=== PATIENT | female | born 1940 | race Two or more races ===

== ENCOUNTER 2017-05-27 15:14 | Emergency (ER) | payer OTHER ==
[~2017-05-27] VITALS: Ht 152.4 cm; Wt 81.6 kg
[~2017-05-27 15:14] MED LIST: ASPIR 8181 MG; ENALAPRIL MALEA10 MG; ENALAPRIL-HCTZ1 TAB
[2017-05-27] MEDS ORDERED: COZAAR25 MG (15:28)
== END 2017-05-27 18:09 | disposition home or self-care (01) ==
LOC: ER 15:14
DX: M54.2 Cervicalgia (principal)

== ENCOUNTER 2019-02-22 09:01 | Emergency (ER) | payer OTHER ==
[~2019-02-22] VITALS: Ht 152.4 cm; Wt 83.9 kg
[~2019-02-22 09:01] MED LIST changes: +COZAAR25 MG
[2019-02-22] MEDS ORDERED: AMOX-CLAV 875-1 EACH PO (11:27)
[2019-02-22] MEDS ORDERED: IPRAT-ALBUT 0.5-3 ML IH (11:27)
[2019-02-22] MEDS ORDERED: TUSNEL LIQUID178 ML PO (11:27)
== END 2019-02-22 11:40 | disposition home or self-care (01) ==
LOC: ER 09:01
DX: J20.9 Acute bronchitis, unspecified (principal); B96.0 Mycoplasma pneumoniae [M. pneumoniae] as the cause of diseases classified elsewhere

== ENCOUNTER 2021-01-07 09:24 | Emergency (ER) | payer OTHER ==
[~2021-01-07] VITALS: Ht 152.4 cm; Wt 81.6 kg
[~2021-01-07 09:24] MED LIST changes: +AMOX-CLAV 875-1 EACH PO; +IPRAT-ALBUT 0.5-3 ML IH; +TUSNEL LIQUID178 ML PO
== END 2021-01-07 10:10 | disposition home or self-care (01) ==
LOC: ER 09:24
DX: R06.02 Shortness of breath (principal)

== ENCOUNTER 2021-04-15 09:12 | Outpatient (CLI) | payer OTHER | END 2021-04-15 09:14 | disposition home or self-care (01) | LOC: SONOGRAMA 09:12 | PROVIDERS: ATTEND Internal Medicine | DX: N20.2 Calculus of kidney with calculus of ureter (principal); R10.2 Pelvic and perineal pain; R10.84 Generalized abdominal pain ==

== ENCOUNTER 2021-05-12 10:01 | Outpatient (CLI) | payer OTHER | END 2021-05-12 10:02 | disposition home or self-care (01) | LOC: LAB 10:01 | PROVIDERS: ATTEND Radiology Diagnostic Radiology | DX: K56.0 Paralytic ileus (principal) ==

== ENCOUNTER 2021-05-15 13:29 | Emergency (ER) | payer OTHER ==
[~2021-05-15] VITALS: Ht 160 cm; Wt 83.9 kg
== END 2021-05-15 16:00 | disposition home or self-care (01) ==
LOC: ER 13:29
DX: S46.911A Strain of unspecified muscle, fascia and tendon at shoulder and upper arm level, right arm, initial encounter (principal); X58.XXXA Exposure to other specified factors, initial encounter; Y92.9 Unspecified place or not applicable; M25.511 Pain in right shoulder

== ENCOUNTER 2021-05-21 08:08 | Outpatient (CLI) | payer OTHER | END 2021-05-21 08:22 | disposition home or self-care (01) | LOC: RAD 08:08 → MAMO-SONO 08:08 | PROVIDERS: ATTEND Student in an Organized Health Care Education/Training Program | DX: N63.0 Unspecified lump in unspecified breast (principal) ==

== ENCOUNTER → 2021-05-21 09:49 | Outpatient (CLI) | payer OTHER | END | disposition home or self-care (01) | LOC: NUCLEAR 09:49 | DX: M81.8 Other osteoporosis without current pathological fracture (principal) ==

== ENCOUNTER 2021-06-11 12:21 | Outpatient (CLI) | payer OTHER | END 2021-06-11 12:29 | disposition home or self-care (01) | LOC: SONOGRAMA 12:21 | PROVIDERS: ATTEND Obstetrics & Gynecology Obstetrics | DX: N63.0 Unspecified lump in unspecified breast (principal); N64.4 Mastodynia ==

== ENCOUNTER 2021-06-19 08:15 | Outpatient (CLI) | payer OTHER | END 2021-06-19 08:20 | disposition home or self-care (01) | LOC: LAB 08:15 | PROVIDERS: ATTEND Obstetrics & Gynecology Obstetrics | DX: K86.89 Other specified diseases of pancreas (principal) ==

== ENCOUNTER 2021-06-23 09:18 | Outpatient (CLI) | payer OTHER | END 2021-06-23 09:37 | disposition home or self-care (01) | LOC: MRI 09:18 | PROVIDERS: ATTEND Internal Medicine Gastroenterology | DX: K86.89 Other specified diseases of pancreas (principal) | CPT/HCPCS: 74183; Q9965 ==

== ENCOUNTER 2023-02-02 14:47 | Outpatient (CLI) | payer OTHER | END 2023-02-02 15:01 | disposition home or self-care (01) | LOC: RAD 14:47 | PROVIDERS: ATTEND Specialist | DX: M16.12 Unilateral primary osteoarthritis, left hip (principal) ==

== ENCOUNTER 2023-02-15 16:15 | Emergency (ER) | payer OTHER ==
[~2023-02-15] VITALS: Ht 152.4 cm; Wt 79.4 kg
[2023-02-15] MEDS ORDERED: LEVOTHYROXINE25 MCG PO (17:23)
[2023-02-15 19:25] LABS: HEMATOCRIT 43.2 % (36.0-45.00); HEMOGLOBIN 15.1 g/dL (12.0-15.00); MEAN CORPUSCULAR HEMOGLOBIN 32.3 pg (27.00-32.0); MEAN CORPUSCULAR HGB CONC 35.1 g/dl (32.0-36.0); PLATELET COUNT 219 K/uL (150-450); RED BLOOD COUNT 4.69 M/uL (4.00-6.00); RED CELL DISTRIBUTION WIDTH 12.4 % (11.5-14.5)
[2023-02-15 19:44] LABS: CALCIUM 9.1 mg/dL (8.5-10.1); CREATININE SERUM 0.84 mg/dL (0.55-1.02); GFR 64.91; POTASSIUM 4.38 mEq/L (3.5-5.1)
[2023-02-15 20:28] LABS: PH,URINE 5.5 (5.0-8.0); URINE APPEARANCE Cloudy; URINE BILIRRUBIN Negative (NEGATIVE); URINE BLOOD Negative; URINE COLOR Yellow; URINE GLUCOSE Negative (NEGATIVE); URINE LEUKOCYTE Negative; URINE NITRATE Negative; URINE PROTEIN Negative (NEGATIVE)
[2023-02-15 20:31] LABS: URINE BACTERIA 85.6 uL (0.0-1933); URINE EPITHELIAL CELLS 16.3 uL (0.0-38.8); URINE RBC 62.9 uL (0.0-20.8); URINE WBC 5.2 uL (0.0-23.2)
[2023-02-15] MEDS ORDERED: ESTRACE42.5 GM VAG (21:37)
[2023-02-15] MEDS ORDERED: PYRIDIUM100 MG PO (21:37)
[2023-02-15] MEDS ORDERED: DICLOFENAC SODI50 MG PO (21:46)
== END 2023-02-15 22:02 | disposition home or self-care (01) ==
LOC: ER 16:15
PROVIDERS: Nurse Practitioner Family
DX: R30.0 Dysuria (principal); I10 Essential (primary) hypertension; J45.909 Unspecified asthma, uncomplicated; L40.8 Other psoriasis; E03.9 Hypothyroidism, unspecified; K21.9 Gastro-esophageal reflux disease without esophagitis; N95.2 Postmenopausal atrophic vaginitis
CPT/HCPCS: 36415; 96372; 99284; J1885

== ENCOUNTER 2023-03-14 09:00 | Emergency (ER) | payer OTHER ==
[~2023-03-14] VITALS: Ht 152.4 cm; Wt 81.2 kg
[~2023-03-14 09:00] MED LIST changes: +DICLOFENAC SODI50 MG PO; +ESTRACE42.5 GM VAG; +LEVOTHYROXINE25 MCG PO; +PYRIDIUM100 MG PO
[2023-03-14] MEDS ORDERED: CRESTOR5 MG PO (10:09)
== END 2023-03-14 14:38 | disposition home or self-care (01) ==
LOC: ER 09:01
DX: S92.911A Unspecified fracture of right toe(s), initial encounter for closed fracture (principal); W18.39XA Other fall on same level, initial encounter; Y93.89 Activity, other specified; Y92.89 Other specified places as the place of occurrence of the external cause; S20.212A Contusion of left front wall of thorax, initial encounter
CPT/HCPCS: 71045; 71110; 73620; 96372; 99284; J1885

== ENCOUNTER 2023-05-26 08:02 | Outpatient (CLI) | payer OTHER ==
[~2023-05-26 08:02] MED LIST changes: +CRESTOR5 MG PO
== END 2023-05-26 13:44 | disposition home or self-care (01) ==
LOC: MRI 08:02
DX: N32.1 Vesicointestinal fistula (principal)
CPT/HCPCS: 72197; Q9965

== ENCOUNTER 2024-01-09 09:33 | Emergency (ER) | payer OTHER ==
[~2024-01-09] VITALS: Ht 152.4 cm; Wt 77.1 kg
[2024-01-09] MEDS ORDERED: ORPHENADRINE CITRATE 30 MG/ML AMPUL IM ONE (10:15)
[2024-01-09] MEDS ORDERED: ACETAMINOPHEN 500 MG GEL..CAP PO ONE (10:15)
== END 2024-01-09 16:43 | disposition home or self-care (01) ==
LOC: ER 09:35
DX: S70.02XA Contusion of left hip, initial encounter (principal); S20.212A Contusion of left front wall of thorax, initial encounter; W18.39XA Other fall on same level, initial encounter; Y93.89 Activity, other specified; Y92.89 Other specified places as the place of occurrence of the external cause; Y99.9 Unspecified external cause status; E11.9 Type 2 diabetes mellitus without complications; I10 Essential (primary) hypertension; Z85.89 Personal history of malignant neoplasm of other organs and systems

== ENCOUNTER 2024-04-29 15:22 | Emergency (ER) | payer OTHER ==
[~2024-04-29] VITALS: Ht 154.9 cm; Wt 79.4 kg
== END 2024-04-29 17:12 | disposition home or self-care (01) ==
LOC: ER 15:25
DX: B35.8 Other dermatophytoses (principal)

== ENCOUNTER 2024-07-25 07:09 | Outpatient (CLI) | payer OTHER | END 2024-07-25 07:15 | disposition home or self-care (01) | LOC: TOM 07:09 | PROVIDERS: ATTEND Internal Medicine Hepatology | DX: R62.59 Other lack of expected normal physiological development in childhood (principal) ==

== ENCOUNTER → 2024-09-14 | Emergency (ER) | payer OTHER ==
[~2024-09-14] VITALS: Ht 152.4 cm; Wt 77.1 kg
[~2024-09-14] MED LIST changes: +OMEGA-3 ACID ETH1 GM PO; +TRAMADOL HCL 50 MG TABLET PO ONE
[2024-09-14 21:34] VITALS: BP 125/65; O2SAT 96
== END | disposition home or self-care (01) ==
LOC: ER 21:05
DX: S62.101A Fracture of unspecified carpal bone, right wrist, initial encounter for closed fracture (principal); W19.XXXA Unspecified fall, initial encounter; Y93.89 Activity, other specified; Y92.89 Other specified places as the place of occurrence of the external cause; Y99.8 Other external cause status

== ENCOUNTER 2024-09-19 05:09 | Day surgery (SDC) | payer OTHER ==
[2024-09-18 08:46] LABS: BASO % 0.7 % (0.1-1.2); EOS # 0.29 (0.04-0.54); EOS % 4.9 % (0.7-7.0); LYMPH # 2.01 (1.18-3.74); LYMPH % 34.0 % (19.3-53.1); MEAN PLATELET VOLUME 9.60 fl (9.4-12.4); MONO # 0.62 (0.24-0.82); MONO % 10.5 % (4.7-12.5); NEUT # 2.96 (1.56-6.13); NEUT % 49.9 % (34.0-71.1); RED CELL DISTRIBUTION WIDTH 11.4 % (11.6-14.4)
[2024-09-18 08:52] VITALS: BP 145/85
[2024-09-18 09:03] LABS: INR 1.05
[2024-09-18 09:12] LABS: URINE APPEARANCE Clear; URINE BILIRRUBIN Small (NEGATIVE); URINE BLOOD Negative; URINE COLOR Orange; URINE GLUCOSE Negative (NEGATIVE); URINE KETONE Trace (NEGATIVE); URINE LEUKOCYTE Trace; URINE NITRATE Negative; URINE PROTEIN Trace (NEGATIVE); URINE UROBILINOGEN 1.0 E.U./dl
[2024-09-18 09:14] LABS: URINE BACTERIA 97.1 uL (0.0-1933); URINE CAST 3.66 uL (0.0-1.40); URINE EPITHELIAL CELLS 24.9 uL (0.0-38.8); URINE RBC 13.6 uL (0.0-20.8); URINE WBC 7.3 uL (0.0-23.2)
[2024-09-18 09:23] LABS: CHOL HDL RATIO 3.5 (0-5.0); HDL 54.0 mg/dl (40-60); LDL 93.0 mg/dl (0-130); VLDL 42.0 (0-39)
[2024-09-18 09:24] LABS: ALT/SGPT 55.0 U/L (12-78); AST/SGOT 39.0 U/L (15-37); BILIRUBIN TOTAL 2.03 mg/dL (0.3-1.2); BUN CREA RATIO 14.0 (7.0-25.0); CREATININE SERUM 0.73 mg/dL (0.55-1.02); GFR 75.95; GLOBULINA 3.2 G/DL (2.4-3.5); GLUCOSE FASTING 127.0 mg/dL (65-100); OSMOLALITY SERUM 286.0 MOSM/KG (275-295)
[2024-09-18 09:42] LABS: URINE CRYSTALS MODERATE /HPF; URINE MUCUS MODERATE
[2024-09-18 09:49] LABS: COVID-19 AG NEGATIVE (NEGATIVE)
[~2024-09-19] VITALS: Ht 152.4 cm; Wt 74.8 kg
[~2024-09-19 05:09] MED LIST changes: +TALTZ SYRI20 MG/0.25; -TRAMADOL HCL 50 MG TABLET PO ONE
[2024-09-19] MEDS ORDERED: LIDOCAINE HCL 1%/EPINEPHRINE 20ML VIAL IJ ONE (10:00)
[2024-09-19] MEDS ORDERED: BUPIVACAINE HCL/PF 0.25% 30ML VIAL InF ONE (10:00)
[2024-09-19] MEDS ORDERED: CEFAZOLIN SODIUM 1,000 MG VIAL IV ONE (10:00)
[2024-09-19] MEDS ORDERED: SUGAMMADEX SODIUM 200 MG/2 ML VIAL IV ONE (10:45)
[2024-09-19] MEDS ORDERED: PERCOCET 5-3251 EACH PO (11:17)
[2024-09-19] MEDS ORDERED: DUI500 PO (11:17)
[2024-09-19] MEDS ORDERED: MORPHINE SULFATE 4 MG/ML VIAL IV ONE (13:20)
== END 2024-09-19 15:00 | disposition home or self-care (01) ==
LOC: CIR.AMB 05:09
PROVIDERS: ATTEND Orthopaedic Surgery
DX: S52.531A Colles' fracture of right radius, initial encounter for closed fracture (principal); M81.0 Age-related osteoporosis without current pathological fracture; S52.691A Other fracture of lower end of right ulna, initial encounter for closed fracture
CPT/HCPCS: 25609; 20902; 25101; L8699

== ENCOUNTER 2025-01-19 08:31 | Outpatient (CLI) | payer OTHER ==
[~2025-01-19 08:31] MED LIST changes: +DUI500 PO; +PERCOCET 5-3251 EACH PO
== END 2025-01-19 08:35 | disposition home or self-care (01) ==
LOC: SONOGRAMA 08:31
DX: K76.0 Fatty (change of) liver, not elsewhere classified (principal)